=== PATIENT | female | born 1975 | race Caucasian/White ===

== ENCOUNTER → 2017-12-21 | Outpatient (CLI) | payer OTHER | LOC: PLD 10:15 → LAB SHORT 10:15 | DX: D48.5 Neoplasm of uncertain behavior of skin (principal) ==

== ENCOUNTER → 2021-12-09 | Outpatient (CLI) | payer OTHER ==
[2021-12-11 19:10] LABS: HPV 16 Negative (Negative); HPV 18 Negative (Negative); HPV OTHER HR TYPES Negative (Negative)
== END | disposition home or self-care (01) ==
LOC: LAB 11:00 → LAB SHORT 11:00
PROVIDERS: Family Medicine
DX: Z01.419 Encounter for gynecological examination (general) (routine) without abnormal findings (principal)
CPT/HCPCS: 87624; G0145

== ENCOUNTER 2024-06-01 11:34 | Day surgery (SDC) | payer OTHER ==
[~2024-06-01] VITALS: Ht 175.3 cm; Wt 95.8 kg
[~2024-06-01 11:34] MED LIST: NS 500 ML IV ONE
[2024-06-01] MEDS ORDERED: Clindamycin 900mg in D5W 50ML 50 ML IV ONE (11:51)
[2024-06-01] MEDS ORDERED: NS 500 ML IV ONE (11:55)
[2024-06-01] MEDS ORDERED: DESVENLAFAXINE50 M3 PO (11:56)
[2024-06-01] MEDS ORDERED: DICLOFENAC SODI50 GM TP (11:57)
[2024-06-01] MEDS ORDERED: CITALOPRAM HBR20 M9 PO (11:57)
[2024-06-01] MEDS ORDERED: LOSA50 PO (11:57)
[2024-06-01] MEDS ORDERED: ZYRTEC10 M3 PO (12:01)
[2024-06-01] MEDS ORDERED: Lidocaine HCl 2% 10 ML SDA ONE (12:29)
[2024-06-01] MEDS ORDERED: Dexamethasone Sod Phos 10 MG/ML 1ML VIAL ONE (12:30)
[2024-06-01] MEDS ORDERED: Ondansetron HCl 2 MG / ML 2ML Vial ONE (12:30)
[2024-06-01] MEDS ORDERED: Ketorolac Tromethamine 30mg Vial ONE (12:30)
[2024-06-01] MEDS ORDERED: FentaNYL Citrate 50 MCG/ML 2 ML Injection ONE (12:31)
[2024-06-01] MEDS ORDERED: propofoL 20 ML IV ONE (12:31)
[2024-06-01] MEDS ORDERED: Bupivacaine 0.5% HCl 5 MG/ML 30MLVIAL INJ ONE (13:13)
[2024-06-01 13:42] VITALS: BP 136/85
[2024-06-01] MEDS ORDERED: HYDROcodone 5-APAP 325 TAB ONE (14:17)
--- NOTE | 2024-06-01 14:27 | NUR ---
06/01/24 1427 SANDRA MARIE JUST PRIOR TO TAKING PT OUT, PT STATES THAT DR. CASILLAS SAID THAT I WOULD BE GIVING HER A PAIN PILL PRIOR TO DC. STATES NO PAIN BUT STARTING TO TINGLE. NORCO 5/325MG GIVEN PO.
== END 2024-06-01 14:25 | disposition home or self-care (01) ==
LOC: ORSCSDS 11:34
PROVIDERS: Podiatrist Foot & Ankle Surgery
PROC: 0QBN0ZZ Excision of Right Metatarsal, Open Approach (ICD-10-PCS; principal; 2024-06-01 13:00)
PROC: 0QBQ0ZZ Excision of Right Toe Phalanx, Open Approach (ICD-10-PCS; principal; 2024-06-01 13:00)
PROC: 0QSN04Z Reposition Right Metatarsal with Internal Fixation Device, Open Approach (ICD-10-PCS; principal; 2024-06-01 13:00)
DX: M20.5X1 Other deformities of toe(s) (acquired), right foot (principal); M79.671 Pain in right foot; I10 Essential (primary) hypertension; E66.9 Obesity, unspecified; Z68.31 Body mass index [BMI] 31.0-31.9, adult; G47.33 Obstructive sleep apnea (adult) (pediatric); Z79.899 Other long term (current) drug therapy
CPT/HCPCS: A9270; J1100; J1885; J2003; J2405; J2704; J3010; J7040

== ENCOUNTER 2024-12-21 11:35 | Day surgery (SDC) | payer OTHER ==
[~2024-12-21] VITALS: Ht 177.8 cm; Wt 98.4 kg
[~2024-12-21 11:35] MED LIST changes: +CITALOPRAM HBR20 M9 PO; +DESVENLAFAXINE50 M3 PO; +DICLOFENAC SODI50 GM TP; +LOSA50 PO; +Lactated Ringer's 1,000 ML IV ONE; +Lidocaine HCl 2% 10 ML SDA ONE; -NS 500 ML IV ONE; +ZYRTEC10 M3 PO
[2024-12-21] MEDS ORDERED: propofoL 20 ML IV ONE (12:06)
[2024-12-21] MEDS ORDERED: FentaNYL Citrate 50 MCG/ML 2 ML Injection ONE (12:06)
[2024-12-21] MEDS ORDERED: CeFAZolin Sodium 2,000 MG VIAL ONE (12:18)
[2024-12-21] MEDS ORDERED: Lactated Ringer's 1,000 ML IV ONE (12:20)
[2024-12-21] MEDS ORDERED: Ondansetron HCl 2 MG / ML 2ML Vial ONE (12:30)
[2024-12-21] MEDS ORDERED: Dexamethasone Sod Phos 10 MG/ML 1ML VIAL ONE (12:30)
[2024-12-21] MEDS ORDERED: Bupivacaine 0.5% W/EPI 1:200000 SDV 30ML INJ ONE (12:51)
[2024-12-21] MEDS ORDERED: Ketorolac Tromethamine 30mg Vial ONE (12:56)
[2024-12-21 13:33] VITALS: BP 154/89
--- NOTE | 2024-12-21 13:46 | NUR ---
12/21/24 1346 SANDRA MARIE LEFT FOOT WARM AND PINK IN COLOR
== END 2024-12-21 14:21 | disposition home or self-care (01) ==
LOC: ORSCSDS 11:35
PROVIDERS: Podiatrist Foot & Ankle Surgery
PROC: 0QSP04Z Reposition Left Metatarsal with Internal Fixation Device, Open Approach (ICD-10-PCS; principal; 2024-12-21 13:00)
PROC: 0QBP0ZZ Excision of Left Metatarsal, Open Approach (ICD-10-PCS; principal; 2024-12-21 13:00)
DX: M20.5X2 Other deformities of toe(s) (acquired), left foot (principal); I10 Essential (primary) hypertension; G47.33 Obstructive sleep apnea (adult) (pediatric); E66.9 Obesity, unspecified; Z68.31 Body mass index [BMI] 31.0-31.9, adult; Z79.899 Other long term (current) drug therapy
CPT/HCPCS: A6253; C1713; J0690; J1100; J1885; J2003; J2405; J2704; J3010; J7120